=== PATIENT | male | born 1985 ===

== ENCOUNTER 2016-08-17 22:32 | Emergency (ER) | payer SELFPAY ==
[2016-08-17 22:36] VITALS: RESP 16; TEMP 99.1; O2SAT 97
--- NOTE | 2016-08-17 22:59 | ED PDOC ---
Arrival/HPI <Jaguar Kaiser - Last Filed: 08/18/16 01:51> - General Historian: Patient - History of Present Illness Time/Duration: Prior to Arrival Symptom Onset: Sudden Symptom Course: Unchanged Context: Home <Ro Ryan - Last Filed: 08/18/16 01:57> - General Chief Complaint: Chest Pain Time Seen by Provider: 08/17/16 22:34 - History of Present Illness Narrative History of Present Illness (Text): 08/17/16 23:05 30 yo male with no significant PMH presents to ED with left sided chest pain. Patient states that the pain started 20 minutes before coming to hospital. He describes the pain as squeezing pain, 5/10. He states that its been constant since it started and pain does not radiate. He states that initially he also experienced dizziness and SOB with resolved after a few minutes. He denies any trauma. At the time he was at work, as a cook in a restaurant. He denies any fever, chills, abd pain, urinary symptoms. PMD: none (Ro Ryan) Past Medical History - Provider Review Nursing Documentation Reviewed: Yes - Psychiatric Hx Substance Use: No <Ro Ryan - Last Filed: 08/18/16 01:57> Family/Social History - Physician Review Nursing Documentation Reviewed: Yes Family/Social History: CAD/[place] (grandfather), Neoplasm/Cancer (grandfather- colon ca) Smoking Status: Never Smoked Hx Alcohol Use: Yes Frequency of alcohol use: Socially Hx Substance Use: No <Ro Ryan - Last Filed: 08/18/16 01:57> Allergies/Home Meds <Jaguar Kaiser - Last Filed: 08/18/16 01:51> <Ro Ryan - Last Filed: 08/18/16 01:57> Allergies/Adverse Reactions: Allergies No Known Allergies Allergy (Verified 08/17/16 22:33) Home Medications: Home Meds Medication Instructions Recorded Confirmed No Known Home Med 08/17/16 08/17/16 Review of Systems - Review of Systems Constitutional: Normal. absent: Fatigue, Fevers Eyes: Normal. absent: Vision Changes ENT: Normal. absent: Sore Throat, Rhinorrhea, Sinus Congestion Respiratory: Normal. absent: SOB, Cough Cardiovascular: Chest Pain. absent: Edema, Calf Pain, Syncope Gastrointestinal: Normal. absent: Abdominal Pain, Constipation, Diarrhea, Nausea, Vomiting Genitourinary Male: Normal. absent: Dysuria, Frequency, Hematuria Musculoskeletal: Normal. absent: Arthralgias, Back Pain, Myalgias Skin: Normal. absent: Rash, Pruritis, Laceration Neurological: Normal. absent: Headache, Dizziness Endocrine: Normal. absent: Diaphoresis Hemo/Lymphatic: Normal. absent: Easy Bleeding, Easy Bruising Psychiatric: Normal <Ro Ryan - Last Filed: 08/18/16 01:57> Physical Exam Vital Signs Reviewed: Yes Temperature: Afebrile Blood Pressure: Normal Pulse: Tachycardic Respiratory Rate: Normal Appearance: Positive for: Well-Appearing, Non-Toxic, Comfortable Pain Distress: None Mental Status: Positive for: Alert and Oriented X 3 <Jaguar Kaiser - Last Filed: 08/18/16 01:51> - Systems Exam Head: Present: Atraumatic, Normocephalic Pupils: Present: PERRL. No: Sluggish, Non-Reactive, Pinpoint Extroacular Muscles: Present: EOMI. No: Gaze Palsy, Entrapment Conjunctiva: Present: Normal Mouth: Present: Moist Mucous Membranes Pharnyx: Present: Normal. No: ERYTHEMA, EXUDATE, TONSILS ENLARGED Nose (External): Present: Atraumatic Neck: Present: Normal Range of Motion Respiratory/Chest: Present: Clear to Auscultation, Good Air Exchange. No: Respiratory Distress, Accessory Muscle Use, Wheezes, Rales, Rhonchi, Tachypneic Cardiovascular: Present: Regular Rate and Rhythm, Normal S1, S2, Tachycardic. No: Murmurs Abdomen: Present: Normal Bowel Sounds. No: Tenderness, Distention, Peritoneal Signs Back: Present: Normal Inspection. No: CVA Tenderness, Midline Tenderness, Paraspinal Tenderness Upper Extremity: Present: Normal Inspection, NORMAL PULSES. No: Cyanosis, Edema , Tenderness, Swelling Lower Extremity: Present: Normal Inspection. No: Edema, CALF TENDERNESS Neurological: Present: GCS=15, CN II-XII Intact, Speech Normal Skin: Present: Warm, Dry, Normal Color. No: Rashes Psychiatric: Present: Alert, Oriented x 3, Normal Insight, Normal Concentration <Ro Ryan - Last Filed: 08/18/16 01:57> Vital Signs Temp Pulse Resp BP Pulse Ox 08/17/16 22:35 99.1 F 99 H 16 155/97 H 97 Medical Decision Making <Jaguar Kaiser - Last Filed: 08/18/16 01:51> <Ro Ryan - Last Filed: 08/18/16 01:57> ED Course and Treatment: Patient Seen With Resident: In agreement with resident note which contains more details about the patient. Patient was seen and evaluated with resident. Came up with plan and treatment together. Patient is a 30 year old male who presents to the emergency department complaining of left sided non-radiating chest pain. EKG, Labs, Chest X-ray and cardiac enzymes ordered. 08/18/16 01:51 On re-evaluation, patient feels better and is in no acute distress. I have discussed the results and plan with the patient, who expresses understanding. Patient in agreement with plan to be discharged home. Patient is stable for discharge. Patient was instructed to follow up with physician or return if symptoms worsen or new concerning symptoms arise. (Jaguar Kaiser) 08/17/16 22:58 Impression: 30 yo male with no significant PMH presents with left sided chest pain . Differential diagnoses includes but not limited to: - muscular skeletal Plan: - cbc, cmp - ekg - cardiac iso - cxr 08/18/16 01:44 - patient is feeling better after toradol. Lab work was reviewed, WNL. EKG showed sinus tachy. CXR showed no active disease. Patient is agreeable to be discharged home. He is to follow up with PMD in 1-2 days. (Ro Ryan) - Lab Interpretations Lab Results: 08/17/16 22:58 08/17/16 22:58 Lab Results 08/17/16 22:58: Sodium 137, Potassium 4.0, Chloride 102, Carbon Dioxide 24, Anion Gap 15, BUN 23 H, Creatinine 0.9, Est GFR ( Amer) > 60, Est GFR ( Non-Af Amer) > 60, Random Glucose 99, Calcium 9.5, Total Bilirubin 0.6, AST 37, ALT 46, Alkaline Phosphatase 82, Lactate Dehydrogenase 473, Total Creatine Kinase 143, Troponin I < 0.01, Total Protein 7.9, Albumin 4.7, Globulin 3.2, Albumin/Globulin Ratio 1.5 08/17/16 22:58: WBC 6.8, RBC 5.49, Hgb 16.0, Hct 44.8, MCV 81.6, MCH 29.1, MCHC 35.7, RDW 12.7, Plt Count 272, MPV 9.4, Gran % 63.2, Lymph % (Auto) 29.9, Lassen % (Auto) 5.6, Eos % (Auto) 1.2 L, Baso % (Auto) 0.1, Gran # 4.31, Lymph # 2.0, Lassen # 0.4, Eos # 0.1, Baso # 0.01 - RAD Interpretation Radiology Orders: 08/17/16 22:54 CHEST PORTABLE [RAD] Stat - EKG Interpretation EKG Interpretation (Text): 08/17/16 22:56 Rate: 104 bmp tachycardia with non specific ST changes (Ro Ryan) - Medication Orders Current Medication Orders: Discontinued Medications Ketorolac Tromethamine (Toradol) 30 mg IVP ONCE ONE Stop: 08/17/16 23:56 Last Admin: 08/18/16 00:58 Dose: 30 mg - 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 / has examined the patient and agrees with the treatment plan. <Jaguar Kaiser - Last Filed: 08/18/16 01:51> Disposition/Present on Arrival <Jaguar Kaiser - Last Filed: 08/18/16 01:51> - Present on Arrival Any Indicators Present on Arrival: No History of DVT/PE: No History of Uncontrolled Diabetes: No Urinary Catheter: No History of Decub. Ulcer: No History Surgical Site Infection Following: None - Disposition Have Diagnosis and Disposition been Completed?: Yes Disposition Time: 01:45 Patient Plan: Discharge <Ro Ryan - Last Filed: 08/18/16 01:57> - Disposition Diagnosis: Chest pain, musculoskeletal Disposition: HOME/ ROUTINE Patient Problems: Current Active Problems Problem Status Onset Chest pain, musculoskeletal Acute Condition: GOOD Discharge Instructions (ExitCare): Chest Pain (ED) Additional Instructions: Beau Mehta, thank you for letting us take care of you today. Your provider was Dr. Ryan and Dr. Kaiser. You were treated for muscular skeletal chest pain. The emergency medical care you received today was directed at your acute symptoms. If you were prescribed any medication, please fill it and take as directed. It may take several days for your symptoms to resolve. Return to the Emergency Department if your symptoms worsen, do not improve, or if you have any other problems. Please contact your doctor or call one of the physicians/clinics you have been referred to that are listed on the Patient Visit Information form that is included in your discharge packet. Bring any paperwork you were given at discharge with you along with any medications you are taking to your follow up visit. Our treatment cannot replace ongoing medical care by a primary care provider (PCP) outside of the emergency department. Thank you for allowing the [facility] team to be part of your care today. If you had an X-Ray or CT scan: A Radiologist will review the ED reading if any change in treatment is needed we will contact you. Referrals: [facility] [Outside] - Follow up with primary [facility] Natan Rerylee, [Primary Care Provider] - Follow up with primary
[2016-08-17 23:11] LABS: ADD MANUAL DIFF? NO
[2016-08-17 23:18] LABS: BASO # 0.01 K/mm3 (0.0-2.0); BASO % 0.1 % (0.0-3.0); EOS # 0.1 (0.0-0.7); EOS % 1.2 % (1.5-5.0); GRAN # 4.31 (1.4-6.5); GRAN % 63.2 % (50.0-68.0); HEMATOCRIT 44.8 % (42.0-52.0); LYMPH % 29.9 % (22.0-35.0); MEAN CELL VOLUME 81.6 fL (80.0-105.0); MEAN CORPUSCULAR HEMOGLOBIN 29.1 pg (25.0-35.0); MEAN CORPUSCULAR HGB CONC 35.7 g/dl (31.0-37.0); MEAN PLATELET VOLUME 9.4 fl (7.0-11.0); MONO # 0.4 (0.1-0.6); MONO % 5.6 % (1.0-6.0); PLATELET COUNT 272 10^3/uL (120.0-450.0); RED CELL DISTRIBUTION WIDTH 12.7 % (11.5-14.5); WHITE BLOOD COUNT 6.8 10^3/ul (4.5-11.0)
[2016-08-17 23:24] LABS: ALB/GLOB RATIO 1.5 (1.1-1.8); ALKALINE PHOSPHATASE 82 U/L (38-133); ALT/SGPT 46 U/L (7-56); AST/SGOT 37 U/L (15-59); BILIRUBIN,TOTAL 0.6 mg/dL (0.2-1.3); BLOOD UREA NITROGEN 23 mg/dL (7-21); CALCIUM 9.5 mg/dL (8.4-10.5); CARBON DIOXIDE 24 mmol/L (21-33); CHLORIDE 102 mmol/L (98-107); GFR AFRICAN-AMERICAN > 60; GLUCOSE,RANDOM 99 mg/dL (70-110); SODIUM 137 mmol/L (132-148); TOTAL PROTEIN 7.9 g/dL (5.8-8.3)
[2016-08-18 00:06] LABS: TROPONIN I < 0.01 ng/mL
[2016-08-18 02:03] VITALS: BP 131/95; PULSE 79
--- NOTE | 2016-08-18 09:39 | RAD ---
HISTORY: Chest pain COMPARISON: No prior. FINDINGS: LUNGS: The lungs are well inflated and clear. PLEURA: No significant pleural effusion identified, no pneumothorax apparent. CARDIOVASCULAR: Normal. OSSEOUS STRUCTURES: No significant abnormalities. VISUALIZED UPPER ABDOMEN: Normal. OTHER FINDINGS: None. IMPRESSION: No active pulmonary disease.
--- NOTE | 2016-08-18 16:01 | CARD ---
APPROVED REPORT EKG Measurement Heart [id number] <Conclusion> Sinus tachycardia Minimal voltage criteria for LVH, may be normal variant Borderline ECG
== END 2016-08-18 02:03 | disposition home or self-care (01) ==
LOC: ED 22:32
DX: R07.89 Other chest pain (principal); Z82.49 Family history of ischemic heart disease and other diseases of the circulatory system
CPT/HCPCS: 71010; 80053; 82550; 83615; 84484; 85025; 93005; 96374; 99283; J1885